=== PATIENT | male | born 1985 | race Hispanic/Latino ===

== ENCOUNTER 2019-07-05 05:12 | Emergency (ER) | payer OTHER, SELFPAY ==
--- NOTE | ~2019-07-05 | US_ITS ---
US right upper quadrant INDICATION: Right upper quadrant abdominal pain PROCEDURE: Realtime right upper abdominal ultrasound. COMPARISON: No prior studies for comparison. FINDINGS: The pancreas is normal without focal mass or pancreatic ductal dilation. Liver echotexture is increased, consistent with fatty infiltration. There is normal directional flow in the portal ve in. There are gallstones. No significant gallbladder wall thickening or pericholecystic fluid. Common bi le duct measures 5 mm. No sonographic Stewart's sign. IMPRESSION: 1: Cholelithiasis. 2: Hepatic steatosis. Reviewed, dictated and finalized at location A.
[2019-07-05 05:18] VITALS: BP 170/125; PULSE 71; RESP 16; TEMP 36.5; O2SAT 99
--- NOTE | 2019-07-05 05:41 | ED.ABDPAIN ---
HPI - Abdominal Pain General Chief Complaint: Abdominal Pain <Ada Taveras MD - Last Filed: 07/09/19 19:08> Stated Complaint: RUQ abd pain <Ada Taveras MD - Last Filed: 07/09/19 19:08> Time Seen by Provider: 07/05/19 05:35 <Ada Taveras MD - Last Filed: 07/09/19 19:08> Source: patient <Ada Taveras MD - Last Filed: 07/09/19 19:08> Mode of arrival: ambulatory <Ada Taveras MD - Last Filed: 07/09/19 19:08> Limitations: no limitations <Ada Taveras MD - Last Filed: 07/09/19 19:08> History of Present Illness HPI narrative: Patient is a 33-year-old male who presents to the emergency department with complaint of right upper quadrant pain. Patient states the pain woke him from sleep. Patient reports that pain has improved at this time. <Ada Taveras MD - Last Filed: 07/09/19 19:08> MD elicited complaint: abdominal pain <Ada Taveras MD - Last Filed: 07/09/19 19:08> Onset (ago): hour(s) <Ada Taveras MD - Last Filed: 07/09/19 19:08> Pain Consistency: constant and now resolved <Ada Taveras MD - Last Filed: 07/09/19 19:08> Location: RUQ <Ada Taveras MD - Last Filed: 07/09/19 19:08> Quality: dull <Ada Taveras MD - Last Filed: 07/09/19 19:08> Radiation: none <Ada Taveras MD - Last Filed: 07/09/19 19:08> Migration to: no migration <Ada Taveras MD - Last Filed: 07/09/19 19:08> Exacerbating factors: other (lying flat, palpation) <Ada Taveras MD - Last Filed: 07/09/19 19:08> Related Data Home Medications: Home Medications Medication Instructions Recorded Confirmed losartan 50 mg tablet 50 mg PO DAILY tablet 07/06/19 <Ada Taveras MD - Last Filed: 07/09/19 19:08> Allergies/Adverse Reactions: Allergies Allergy/AdvReac Type Severity Reaction Status Date / Time No Known Allergies Allergy Unknown Verified 07/07/19 09:26 <Ada Taveras MD - Last Filed: 07/09/19 19:08> Review of Systems Review of Systems: All systems reviewed & are unremarkable except as noted in HPI and below <Ada Taveras MD - Last Filed: 07/09/19 19:08> Constitutional: Constitutional: Denies fever(s) <Ada Taveras MD - Last Filed: 07/09/19 19:08> Respiratory: Respiratory: Reports cough <Ada Taveras MD - Last Filed: 07/09/19 19:08> Gastrointestinal: Gastrointestinal: Reports abdominal pain, Denies constipation, Denies diarrhea, Denies nausea and Denies vomiting <Ada Taveras MD - Last Filed: 07/09/19 19:08> Genitourinary: Genitourinary: Denies hematuria and Denies urinary frequency <Ada Tvaeras MD - Last Filed: 07/09/19 19:08> Musculoskeletal: Musculoskeletal: Denies back pain <Ada Taveras MD - Last Filed: 07/09/19 19:08> [facility], LAT[facility] Social History Social History: Social History Smoking status: Never smoker Second hand tobacco smoke exposure: No Alcohol intake: never Substance use: never <Ada Taveras MD - Last Filed: 07/09/19 19:08> Exam Const: General: cooperative, no acute distress and alert <Ada Taveras MD - Last Filed: 07/09/19 19:08> Nutritional Appearance: obese <Ada Taveras MD - Last Filed: 07/09/19 19:08> Orientation/consciousness: patient oriented x3 <Ada Taveras MD - Last Filed: 07/09/19 19:08> Limitations: no limitations <Ada Taveras MD - Last Filed: 07/09/19 19:08> HENMT: Mouth: Yes lip normal and Yes moist mucous membranes <Ada Taveras MD - Last Filed: 07/09/19 19:08> Resp: Effort & Inspection: normal respiratory effort <Ada Taveras MD - Last Filed: 07/09/19 19:08> Auscultation: clear to auscultation bilaterally <Ada Taveras MD - Last Filed: 07/09/19 19:08> Cardio: Rate: regular rate
[2019-07-05 05:49] LABS: Basophils Percent Auto 0.2 % (0.2-1.2); Eosinophils Absolute Auto 0.3 K/mm3 (0-0.3); Eosinophils Percent Auto 2.6 % (0-4.4); Hematocrit 48.6 % (42.0-52.0); Immature Granulocyte Absolute 0.05 K/mm3 (0.00-0.031); Immature Granulocyte Percent A 0.5 % (0-0.5); Lymphocytes Absolute Auto 3.55 K/mm3 (0.9-3.2); Lymphocytes Percent Auto 33.4 % (18.3-44.2); Mean Corpuscular Hemoglobin 29.2 pg (26-34); Mean Corpuscular Volume 83.5 fl (80-100); Mean Platelet Volume 9.8 fl (7.4-10.4); Monocytes Percent Auto 9.7 % (2.6-8.5); Neutrophils Absolute Auto 5.7 K/mm3 (1.3-6.7); Neutrophils Percent Auto 53.6 % (45.5-73.1); Platelet Count Result 256 k/mm3 (150-375); Red Blood Count 5.82 M/mm3 (4.6-6.20); White Blood Count 10.6 K/mm3 (4.5-10.0)
[2019-07-05 05:55] LABS: Add Urine Microscopic? NO; Appearance Urine Clear (Clear); Bilirubin Urine Negative (Negative); Blood Urine Negative (Negative); Color Urine Straw (Yellow); Glucose Urine UA Negative (Negative); Ketones Urine Negative (Negative); Leukocyte Esterase Ur Negative LEU/UL (Negative); Nitrate Urine Negative (Negative); Protein Urine Negative (Negative); Specific Grav Ur 1.015 (1.001-1.035); Urobilinogen Urine Negative mg/dL (<2.0); WBC Urine 0-3 /hpf
[2019-07-05 06:12] LABS: Alanine Aminotransferase 57 U/L (4-50); Albumin Level 4.6 g/dL (3.5-5.1); Alkaline Phosphatase 50 U/L (38-126); Aspartate Amino Transferase 54 U/L (17-59); Bilirubin,Total 0.7 mg/dL (0.2-1.3); Blood Urea Nitrogen 12 mg/dL (9-20); Calcium 9.3 mg/dL (8.4-10.2); Carbon Dioxide 25 mmol/L (22-30); Chloride 104 mmol/L (98-107); Estimated Glomerular Filt Rate > 60; Glucose 159 mg/dL (75-110); Lipase 142 U/L (23-300); Potassium 4.2 mmol/L (3.4-5.0); Sodium 137 mmol/L (137-145)
[2019-07-05 08:25] VITALS: BP 162/80; PULSE 76; RESP 16; O2SAT 99
== END 2019-07-05 08:26 | disposition home or self-care (01) ==
PROVIDERS: Emergency Medicine; Emergency Provider Emergency Medicine; PCP Internal Medicine
DX: K80.20 Calculus of gallbladder without cholecystitis without obstruction (principal); K76.0 Fatty (change of) liver, not elsewhere classified
CPT/HCPCS: 36415; 76705; 80053; 81003; 83690; 85025; 87804; 99284

== ENCOUNTER 2019-07-12 15:42 | Outpatient (CLI) | payer OTHER, SELFPAY ==
--- NOTE | ~2019-07-12 | XR_ITS ---
XR chest 2V DATE: 07/12/2019 16:00 INDICATION: Cough for 3 weeks TECHNIQUE: PA and lateral views COMPARISON: 06/03/2014 PA and lateral chest FINDINGS: Normal heart size. No hilar or mediastinal enlargement. No pulmonary infiltrate or consolid ation, pleural effusion or pulmonary vascular congestion or pneumothorax. Mild degenerative spurring of the thoracic spine. IMPRESSION: No active cardiopulmonary disease Reviewed, dictated and finalized at location A.
== END 2019-07-12 15:43 | disposition home or self-care (01) ==
LOC: ANHIMG 15:47
PROVIDERS: PCP Internal Medicine; Visit Provider Internal Medicine
DX: R05 Cough (principal)
CPT/HCPCS: 71046

== ENCOUNTER 2019-09-11 00:21 | Outpatient (CLI) | payer OTHER, SELFPAY | END 2019-09-11 00:22 | disposition home or self-care (01) | LOC: ANHCOVIDDT 00:21 | PROVIDERS: PCP Internal Medicine; Visit Provider Surgery | DX: Z01.812 Encounter for preprocedural laboratory examination (principal); K80.10 Calculus of gallbladder with chronic cholecystitis without obstruction; Z11.59 Encounter for screening for other viral diseases | CPT/HCPCS: 87635; C9803; U0003 ==

== ENCOUNTER 2019-09-11 07:35 | Outpatient (CLI) | payer OTHER, SELFPAY ==
--- NOTE | 2019-09-11 07:52 | ECG_ITS ---
Measurements Intervals Wiley Rate: 60 P: 28 AL: 157 QRS: 26 QRSD: 98 T: -8 QT: 397 QTc: 400 Interpretive Statements SINUS RHYTHM BORDERLINE T WAVE ABNORMALITY- INFERIOR LEADS BASELINE ARTIFACT- III, AVF BORDERLINE ECG Electronically Signed On 09-11-2019 9:08:53 CDT by Chuck Tan D.O.
[2019-09-11 08:20] LABS: Alanine Aminotransferase 139 U/L (4-50); Albumin Level 4.5 g/dL (3.5-5.1); Alkaline Phosphatase 42 U/L (38-126); Amylase 99 U/L (30-110); Aspartate Amino Transferase 85 U/L (17-59); Bilirubin,Total 0.9 mg/dL (0.2-1.3); Lipase 290 U/L (23-300)
== END 2019-09-11 07:36 | disposition home or self-care (01) ==
PROVIDERS: PCP Internal Medicine; Visit Provider Surgery
DX: K80.10 Calculus of gallbladder with chronic cholecystitis without obstruction (principal); I10 Essential (primary) hypertension
CPT/HCPCS: 36415; 80076; 82150; 83690; 93005

== ENCOUNTER 2019-09-14 00:54 | Day surgery (SDC) | payer OTHER, SELFPAY ==
[2019-09-10 08:20] VITALS: BMI 45.6
[2019-09-14] VITALS (10 sets, daily range): BP systolic 123–164; BP diastolic 54–93; PULSE 71–82; RESP 14–20; TEMP 36.2–36.5; O2SAT 93–98
--- NOTE | 2019-09-14 10:42 | WPDANESEPPF ---
Anes - Initial Pre Proc Eval Procedure: Operation Date: 09/14/19 12:00 Proposed Procedures p Laparoscopic Cholecystectomy Possible Intra Operative Cholangiogram Possible Open - Aiden Goel MD Date/Time: 09/14/19 10:42 Surgeon: Aiden Goel MD Pre Op Diagnosis: Chronic Cholecystitis with Cholelithiasis Patient Data Age: 34 Gender: M Height: 5 ft 11 in Weight: 145.3 kg Last Vital Signs Temp 36.2 C L 09/14/19 10:16 Pulse 78 09/14/19 10:16 Resp 20 09/14/19 10:16 BP 164/89 H 09/14/19 10:16 Pulse Ox 98 09/14/19 10:16 Allergies Allergy/AdvReac Type Severity Reaction Status Date / Time No Known Allergies Allergy Unknown Verified 09/14/19 10:42 Home Medications Medication Instructions Recorded Confirmed Type ondansetron 4 mg PO Q6H PRN #10 tablet 07/05/19 09/10/19 Rx citalopram 10 mg tablet 10 mg PO DAILY #90 tablet 07/07/19 09/10/19 Rx losartan 50 mg tablet 50 mg PO DAILY #90 tablet 09/06/19 09/10/19 Rx famotidine [Pepcid] 20 mg PO DAILY PRN 09/10/19 09/10/19 History multivitamin 1 tablet PO DAILY 09/10/19 09/10/19 History Patient hx anesthesia problems: none Family hx anesthesia problems: none PMFSH Past Medical History Medical History Hypertension Sleep apnea Surgical History Surgical History History of carpal tunnel surgery Bilateral History of repair of right rotator cuff Family History Family History Mother Patient's mother is in good health Cancer Father Patient's father is in good health Diabetes mellitus Social History Social History Smoking status: Never smoker Second hand tobacco smoke exposure: No Alcohol intake: never Substance use: never Gender identity (if verbalized by the patient): Male Anes - Eval Final PreProcedure Day of Procedure 09/14/19 10:42 Patient weight: morbidly obese Heart: regular rate and rhythm Lungs: clear to auscultation Airway: Mallampati scale class II Neurological: alert and oriented Last oral intake: >/= 8 hours ASA classification: III Emergent: no Anesthetic plan: proceed Anesthesia type and monitoring: general ETT and standard monitoring Informed Consent: The patient's anesthetic plan and its attendant risks and benefits were discussed with the patient/family/POA. Questions were solicited and answers provided to the satisfaction of the patient/family/POA.
[2019-09-14] MEDS: LACTATED RINGERS 1,000 ML 30 ML IV CONT ×2 (10:55→14:15)
--- NOTE | 2019-09-14 11:59 | WPDHPUPDATE1 ---
History and Physical Update Update Date/Time: 09/14/19 11:59 History and Physical has been reviewed, including an updated exam of the patient. There are NO changes in the patient's condition. Risks, benefits, and alternatives have been discussed and questions answered. Patient agrees to proceed with procedure.
[2019-09-14] MEDS: ceFAZolin 3 GM/D5W 100 ML 100 ML IVPB (12:18)
[2019-09-14] MEDS: BUPIVACAINE/EPINEPHRINE 0.5% 30 ML VIAL INFILTRATE (13:00)
--- NOTE | 2019-09-14 14:14 | PM.PROC ---
Procedure Note - Detailed Date of procedure: 09/14/19 Pre-op diagnosis: Chronic Cholecystitis with Cholelithiasis Post-op diagnosis: same Procedure performed: Laparoscopic cholecystectomy Description of procedure: Procedure Details: Patient was seen preoperatively in the holding area and risks, benefits and alternatives confirmed. Patient was taken to the operating room and general anesthesia was induced. A time out was then preformed with the surgery team confirming patient and site of surgery. The abdomen was prepped and draped in the usual sterile fashion. Incision was made just below the umbilicus. Two stay sutures of O- Vicryl were used to elevate the mid-line fascia beneath the umbilicus and a small incision was made under direct vision. The peritoneum was entered. The 12 mm Lynn cannula was introduced under direct vision. First under low flow and then under high flow the abdomen was insufflated with carbon dioxide never exceeding a pressure of 14. Three 5 mm trocars were then introduced under direct vision. The following trocars were introduced under direct vision: a 5 mm in the epigastrium and two 5 mm trocars along the right costal margin. There were few omental adhesions to the lower 2 cm of the gallbladder which also contained 2 large colalessed stones. These were dissected carefully with blunt sharp dissection to expose the cystic duct and cystic artery and hte window of safety. Once this was exposed well the gall bladder was grasped and the cystic duct and artery were dissected free and clipped with an 5 mm endo-clip electro mechanical solar technician. Two clips placed on the patient's side and 1 on the gallbladder side of each structure. The cystic duct was then transected. The cystic artery was also transected at this point. The gall bladder was removed using electrocautery and then removed using a large 10 mm grasper via the umbilical incision. Because of the large stones, we had to enlarge the fascial defect under the umbilicus and stretch it and also we opened the gallbladder once it became external to the umbilicus and reached inside it with a sponge stick order to crush 1 of the stones and pulling it up in out which then allowed the other larger stone to come up and out through the enlarged fascial defect. The trocars were removed visualizing hemostasis and the remaining gas evacuated. The large trocar site at the umbilicus was closed with an 0 vicryl figure of 8 suture. The 2 stay sutures mentioned above on either side of the fascia were also tied together to help approximate this midline fascia. Further local anesthetic was placed into each incision for postop pain control. The skin incisions were closed with a subcuticular of 4-0 Monocryl. Surgical glue then was applied to all the incisions. Patient tolerated the procedure well was taken to the recovery room in good condition. Anesthesia: CHITRA Surgeon: Aiden Goel MD Cafe Team Member: Yael ZUNIGA, Or secretary administrative assistant Estimated blood loss (mL): 20 Drains: No Packing: No Pathology: yes (The gallbladder) Complications: No immediate complications Condition: stable Disposition: PACU Findings: No significant inflammation of the gallbladder on inspection.
[2019-09-14] MEDS: ONDANSETRON INJ 4 MG/2 ML VIAL IV PUSH (15:30)
[2019-09-14] MEDS: SCOPOLAMINE 1.5 MG PATCH TRANSDERM (15:50)
[2019-09-14] MEDS: FAMOTIDINE 20 MG/2 ML VIAL IV PUSH (15:50)
== END 2019-09-14 16:40 | disposition home or self-care (01) ==
PROVIDERS: PCP Internal Medicine; Visit Provider Surgery
PROC: 0FT44ZZ Resection of Gallbladder, Percutaneous Endoscopic Approach (ICD-10-PCS; CPT 47562; principal; 2019-09-14 12:00)
DX: K80.10 Calculus of gallbladder with chronic cholecystitis without obstruction (principal); I10 Essential (primary) hypertension; G47.30 Sleep apnea, unspecified; E66.01 Morbid (severe) obesity due to excess calories; Z68.41 Body mass index [BMI] 40.0-44.9, adult
CPT/HCPCS: 47562; 88304; A9270; J0690; J2250; J2405; J3010; J7120

== ENCOUNTER 2021-04-02 08:21 | Outpatient (CLI) | payer OTHER, SELFPAY ==
--- NOTE | 2021-04-09 08:30 | WPDHOMESLEEP ---
Sleep Study - Home Unattended Date of Study: 04/02/21 Ordering Provider: Angel Douglass PA-C Interpreting Provider: Elsi Kearns MD Home Sleep Study Type: Apnea Link Air Height: 1.8 m Weight: 147.418 kg Body Mass Index: 45.3 Neck Circumference (inches): 21 [place]: 7 Reason for Sleep Study Waking at night unable to breathe, excessive daytime sleepiness; has used CPAP in the past * 06/06/2008; home sleep test, AHI 4 * 03/27/2016; split night study, AHI 11.9 with optimal pressure 12 cm * 05/23/2017; negative findings; AHI below 5, however patient continued to have nonrestorative sleep Sleep History Obie Guerrero is a 35 year old man with an episode of waking up one night unable to breathe. He tried to inhale, however he was not able to do so. He is excessively sleepy during the day. He rarely awakens from sleep feeling short of breath. He used CPAP years ago, then was told that he did not need to use it any longer. He rarely awakens from sleep feeling short of breath. He frequently awakens at night with heartburn, belching or coughing. He constantly snores loudly. He rarely has trouble sleeping with a cold. He rarely wakes up gasping for breath at night. He occasionally has breathing problems at night observed by others. He rarely sweats excessively at night. He does not notice his heart pounding or beating irregularly at night. He rarely falls asleep during the day. He does not fall asleep involuntarily or while driving. He does not have loss of muscle tone with strong emotion. He does not have daytime difficulties due to excessive sleepiness. He does not feel paralyzed on waking or falling asleep or have vivid dreamlike scenes upon awakening or falling asleep. He does not feel afraid to go to sleep. Except after a night when he could not catch his breath and inhale. He does not have nightmares. He rarely remembers his dreams. He does not have racing thoughts. He rarely feels sad or depressed. He occasionally has anxiety. He occasionally has muscular tension. He rarely notices parts of his body jerking. He does not kick at night. He rarely has crawling and aching feelings in his legs. He does not have any kind of leg pain at night. He does not have morning jaw pain. He denies grinding his teeth during sleep. He had is not bothered by pain during the day or awakened by pain at night. He occasionally wakes up feeling stiff in the morning, rarely wakes up with sore achy muscles. He occasionally wakes up with pain in the neck and spine. He has had several blood tests showing increased hematocrit and rbc mass consistent with polycythemia. Normal bedtime is 7:30 p.m. taking about an hour to fall asleep on nights that he works. He falls asleep much more quickly on the weekends. He typically wakes 1-3 times at night to urinate. He wakes the morning at 3:15 a.m.. On the weekends he stays awake until 11:00 p.m. or 12 midnight and wakes around 8:30 a.m.. He estimates getting 6-7 hours of sleep at night. He does not take naps. A short nap is not refreshing. He feels better in the morning compared to other times of day. He occasionally awakens feeling refreshed. Habits: Never smoked tobacco. Caffeine 1-2 sodas per day. No alcohol or recreational drugs. [facility] Past Medical History Medical History (Updated 04/09/21 @ 08:44 by Elsi Kearns MD) Acquired polycythemia Anxiety Hypertension Sleep apnea Surgical History Surgical History History of carpal tunnel surgery Bilateral History of repair of right rotator cuff Hx laparoscopic cholecystectomy Family History Family History Mother Patient's mother is in good health Cancer Father Patient's father is in good health Diabetes mellitus Social History Social History Smoking stat
[2021-04-09 09:34] VITALS: BMI 45.3
== END 2021-04-03 13:12 | disposition home or self-care (01) ==
LOC: ANHCSM 08:23
PROVIDERS: PCP Internal Medicine; Visit Provider Physician Assistant
DX: G47.33 Obstructive sleep apnea (adult) (pediatric) (principal); Z68.42 Body mass index [BMI] 45.0-49.9, adult
CPT/HCPCS: 95806

== ENCOUNTER 2023-11-06 13:26 | Outpatient (CLI) | payer BC, SELFPAY ==
--- NOTE | ~2023-11-06 | MR_ITS ---
EXAMINATION: MR lumbar spine wo con DATE: 11/06/2023 13:54 INDICATION: Low back pain, unspecified. TECHNIQUE: Magnetic resonance imaging (MRI) of the lumbar spine was performed without intravenous con trast. Sequences included sagittal T2-weighted FSE, sagittal T2-weighted FS FSE, sagittal T1-weighted FSE, and axial T2-weighted FSE. COMPARISON: None FINDINGS: There is 6 degrees levocurvature of lumbar spine. There is mild chronic anterior wedging of T11-L1 vertebral bodies. There is mildly decreased disc height at L1-L2 and L2-L3 and moderately dec reased disc height from L3-L4 through L5-S1. The distal spinal cord signal intensity is normal. The c onus medullaris is at L1. The following disc levels are specifically discussed: L1-L2: The disc is bulging with superimposed right central extrusion. There is moderate bilateral fac et joint osteoarthritis. There is mild right neural foraminal stenosis. There is mild central canal s tenosis. L2-L3: The disc is bulging and has an annular fissure. There is moderate bilateral facet joint osteoa rthritis. There is moderate right and mild left neural foraminal stenosis. There is mild central lang l stenosis. There is severe stenosis of right lateral recess. L3-L4: The disc is bulging and has an annular fissure. There is moderate right and severe left facet joint osteoarthritis. There is mild bilateral neural foraminal stenosis. There is mild central canal stenosis. L4-L5: The disc is bulging and has an annular fissure. There is severe bilateral facet joint osteoart hritis. There is mild bilateral neural foraminal stenosis. There is mild central canal stenosis. Ther e is moderate stenosis of the lateral recesses. L5-S1: There is a right subarticular zone extrusion with mass effect on the right S1 nerve root in ri ght lateral recess. There is severe bilateral facet joint osteoarthritis. There is mild bilateral lyndon ral foraminal stenosis. There is mild central canal stenosis. There is severe stenosis of right later al recess. IMPRESSION: 1. Severe lumbar spondylosis. Reviewed, dictated and finalized at location E.
== END 2023-11-06 13:27 ==
PROVIDERS: PCP Nurse Practitioner Family; Visit Provider Internal Medicine
DX: M47.896 Other spondylosis, lumbar region (principal)
CPT/HCPCS: 72148

== ENCOUNTER 2024-11-02 17:36 | Emergency (ER) | payer BC, SELFPAY ==
--- NOTE | ~2024-11-02 | XR_ITS ---
XR chest 2V Ordering provider: Tunde Felix MD History: 39 years Male with . dizzy . Comparison: July 12, 2019 FINDINGS: MEDIASTINUM: The cardiac silhouette is not enlarged. LUNGS: No infiltrates, effusions or pneumothorax. OTHER: No free air under the diaphragm. Degenerative changes of the spine. IMPRESSION: No acute cardiopulmonary pathology. Reviewed, dictated and finalized at location A.
--- OUTSIDE RECORDS SUMMARY | 2024-11-02 17:38 | XMS_ITS | Clinical Summary ---
Author Organization [facility] Address [address] [place] [address] Care Team Providers Care Proofer Black And White Name Role Phone Josiah Willard MD Primary Care Provider [phone] Minerva Lambert MD Unavailable Allergies No known active allergies Medications losartan (COZAAR) 50 mg tablet 12/25/2017 Active ibuprofen (ibuprofen) 200 mg tab/cap Take 4 tablet/capsu le (800 mg total) by mouth every 6 (six) hours as needed for pain Active HYDROcodone-raudel taminophen (NORCO) 5-325 mg per tabletIndicatio ns:Pain Take 1 tablet by mouth every 6 (six) hours as needed for pain 10 tablet 10/22/2021 Active gabapentin (NEURONTIN) 300 mg capsule Take 1 capsule (300 mg total) by mouth every 8 (eight) hours 90 capsule 04/27/2024 Active Active Problems Problem Noted Date Diagnosed Date Lumbar nerve root impingement 04/27/2024 Surgical History Surgery Date Site/Laterality Comments ROTATOR CUFF REPAIR CARPAL TUNNEL RELEASE Medical History Medical History Date Comments Hypertension Family History Medical History Relation Name Comments Alcohol abuse Brother Alcohol abuse Father Diabetes Father Hypertension Father Alcohol abuse Mother Arthritis Mother Relation Name Status Comments Brother Father Mother Social History Tobacco Use Types Packs/Day Years Used Date Smoking Tobacco: Never Smokeless Tobacco: Never Alcohol Use Standard Drinks/Week Comments No 0 (1 standard drink = 0.6 oz pur e alcohol) AUDIT-C Answer Date Recorded Q1: How often do you have a drink containing alcohol? Monthly or less 05/21/2024 Q2: How many drinks containi ng alcohol do you have on a typical day when you are drinking? Patient does not drink Q3: How often do you have si x or more drinks on one occasion? Never 05/21/2024 Sex and Gender Information Value Date Recorded Sex Assigned at Not on file Legal Sex Male 3:31 PM CDT Gender Identity Not on file Sexual Orientation Not on file Obstetrics History Last Filed Vital Signs Vital Sign Reading Time Taken Comments Blood Pressure 141/73 05/21/2024 12:12 PM CONSUMER SERVICES CONSULTANT Pulse 66 05/21/2024 12:12 PM CONSUMER SERVICES CONSULTANT Temperature 36.9 C (98.4 F) 05/21/2024 11:12 AM CONSUMER SERVICES CONSULTANT Respiratory Rate 20 05/21/2024 12:12 PM CONSUMER SERVICES CONSULTANT Oxygen Saturation 96% 05/21/2024 12:12 PM CONSUMER SERVICES CONSULTANT Inhaled Oxygen Concentration - - Weight 142.9 kg (315 lb) 05/28/2024 11:43 AM CONSUMER SERVICES CONSULTANT Height 180.3 cm (5' 11) 05/28/2024 11:43 AM CONSUMER SERVICES CONSULTANT Body Mass Index 43.93 05/28/2024 11:43 AM CONSUMER SERVICES CONSULTANT Plan of Treatment Health Maintenance Due Date Last Done Comments Depression Screening 1985 Hepatitis C Screening 1985 DTaP/Tdap/Td Vaccine (1 - Tdap) 09/02/1994 Varicella Vaccines (1 of 2 - 13+ 2-dose series) 09/02/1996 Hepatitis B Screening 09/02/2001 Regular Well Visit/Exam 18-64 09/02/2001 Influenza Vaccine (Season Ended) 2024 03/05/20 16 HPV Vaccines Aged Out No longer eligi ble based on patient's age to complete this topic Pneumococcal vaccine <65 Aged Out No longer eligible based on patient's age to complete this topic Insurance [facility] ACCESS CHOICE ANTHEM ACCESS CHOICE WORKERS COMPENSATION GENERIC Care Teams Proofer Black And White Relationship Specialty Start Date End Date Josiah Willard MD [address] [facility] [address] [place] [address] PCP - General Internal Medicine 03/10/18 Minerva Lambert MD [address] [facility], [address] [address] Consulting Physician Pain Management 04/27/24
--- OUTSIDE RECORDS SUMMARY | 2024-11-02 17:38 | XMS_ITS | Clinical Summary ---
Author Organization [facility] [employer] Address [address] [place] [address] Care Team Providers Care Transformer Repairer Name Role Phone Unavailable Primary Care Provider Unavailabl e Source Comments [facility] [employer],non-owned Affiliates and Associated Physician Practices is amultiple site organization consisting of ambulatory clinics and hospital sitesin [place], [place], [place] and [place]. This disclosure is being madepursuant to the Care Everywhere program and may not contain all information available regarding this patient. Last updated 18.[facility] [employer] Allergies No known active allergies Medications * Be aware that medications may not be up to date on this document. Alwaysverify current medications with the patient. LISINOPRIL-HYDROCH LOROTHIAZIDE PO Acti ve LOSARTAN POTASSIUM PO Active Family History Relation Name Status Comments Father Alive Mother Alive Social History Tobacco Use Types Packs/Day Years Used Date Smoking Tobacco: Never Smokeless Tobacco: Never Sex and Gender Information Value Date Recorded Sex Assigned at Not on file Legal Sex Male 9:26 AM COMMERCIAL [employer] Gender Identity Not on file Sexual Orientation Not on file Last Filed Vital Signs Vital Sign Reading Time Taken Comments Blood Pressure 132/86 04/22/2017 5:17 PM COMMERCIAL REAL ESTATE PARALEGAL Pulse 89 04/22/2017 5:17 PM COMMERCIAL REAL ESTATE PARALEGAL Temperature 37.2 C (98.9 F) 04/22/2017 5:17 PM COMMERCIAL REAL ESTATE PARALEGAL Respiratory Rate 16 04/22/2017 5:17 PM COMMERCIAL REAL ESTATE PARALEGAL Oxygen Saturation 97% 04/22/2017 5:17 PM COMMERCIAL REAL ESTATE PARALEGAL Inhaled Oxygen Concentration - - Weight 142.9 kg (315 lb) 04/22/2017 5:17 PM COMMERCIAL REAL ESTATE PARALEGAL Height 180.3 cm (5' 11) 04/22/2017 5:17 PM COMMERCIAL REAL ESTATE PARALEGAL Body Mass Index 43.93 04/22/2017 5:17 PM COMMERCIAL REAL ESTATE PARALEGAL Plan of Treatment Health Maintenance Due Date Last Done Comments LIPID TESTING 1985 HIV SCREENING 09/02/1998 HEPATITIS C SCREENING 08/29/2001 DTAP/TDAP/TD VACCINES (1 - Tdap) 09/02/2002 HEPATITIS B VACCINE (1 of 3 - 19+ 3-dose series) 09/02/2002 COVID-19 VACCINE ( - 2023-2 5 season) 2023 DEPRESSION SCREENING 04/28/2024 INFLUENZA VACCINE (Season Ended) 2024 ZOSTER VACCINE (1 of 2) 09/02/2033 HIB VACCINE Aged Out No longer eligi ble based on patient's age to complete this topic HPV VACCINE Aged Out No longer eligi ble based on patient's age to complete this topic MENINGOCOCCAL (Group B) VACC INE SHARED DECISION-MAKING Aged Out No longer eligibl e based on patient's age to complete this topic MENINGOCOCCAL GROUPS A/C/Y/W VACCINE Aged Out No longer eligible b ased on patient's age to complete this topic PNEUMOCOCCAL VACCINE Aged Out No long er eligible based on patient's age to complete this topic Insurance [employer]
--- OUTSIDE RECORDS SUMMARY | 2024-11-02 17:38 | XMS_ITS | Referral Summary ---
Author Organization [facility] Address [address] [place] [address] Care Team Providers Care Medicare Coordinator Name Role Phone Josiah Willard MD Primary Care Provider +1- [phone] Minerva Lambert MD Unavailable Allergies No known [...] Diagnosed Date Lumbar nerve root impingement 04/27/2024 Social History Tobacco Use Types Packs/Day Years [...] Comments Blood Pressure 141/73 05/21/2024 12:12 PM GEAR STRAIGHTENER Pulse 66 05/21/2024 12:12 PM GEAR STRAIGHTENER Temperature 36.9 C (98.4 F) 05/21/2024 11:12 AM GEAR STRAIGHTENER Respiratory Rate 20 05/21/2024 12:12 PM GEAR STRAIGHTENER Oxygen Saturation 96% 05/21/2024 12:12 PM GEAR STRAIGHTENER Inhaled Oxygen Concentration - - Weight 142.9 kg (315 lb) 05/28/2024 11:43 AM GEAR STRAIGHTENER Height 180.3 cm (5' 11) 05/28/2024 11:43 AM GEAR STRAIGHTENER Body Mass Index 43.93 05/28/2024 11:43 AM GEAR STRAIGHTENER Plan of Treatment Not on file Insurance [facility] Address: [place] [address] [employer] ACCESS ANTHEM ACCESS CHOICE WORKERS COMPENSATION GENERIC Care Teams Medicare Coordinator Relationship Specialty Start Date End Date Josiah Willard MD [address] [facility] [address] [place] [address] PCP - General Internal Medicine 03/10/18 Minerva Lambert MD [address] [facility], [address] [address] Consulting Physician Pain Management 04/27/24
[2024-11-02 18:19] VITALS: BP 181/109; PULSE 78; RESP 18; TEMP 36.4; O2SAT 99
--- NOTE | 2024-11-02 19:27 | ECG_ITS ---
Test Date: 2024-11-02 20:35:52 Measurements Intervals [place] Rate: 69 P: 60 OK: 156 QRS: 24 QRSD: 100 T: 22 QT: 375 QTc: 404 Interpretive Statements SINUS RHYTHM NORMAL ELECTROCARDIOGRAM No previous ECG available for comparison Electronically Signed On 11-03-2024 07:47:31 CDT by Peter Walton M.D.
[2024-11-02 20:26] LABS: Hematocrit 56.5 % (42.0-52.0); Hemoglobin 18.1 g/dL (14.0-18.0); Immature Granulocyte Percent A 0.2 % (0-0.5); Lymphocytes Absolute Auto 2.79 K/mm3 (0.9-3.2); Mean Corpuscular HGB Conc 32.0 g/dl (32-36); Mean Corpuscular Hemoglobin 24.8 pg (26-34); Mean Corpuscular Volume 77.5 fl (80-100); Nucleated Red Blood Cells Absolute Auto 0.000 K/mm3 (0.0-0.012); Nucleated Red Blood Cells Perc 0.0 % (0.0-0.2); Platelet Count Result 262 k/mm3 (150-375); Red Blood Count 7.29 M/mm3 (4.6-6.20); White Blood Count 11.0 K/mm3 (4.5-10.0)
[2024-11-02 20:35] LABS: Alanine Aminotransferase 31 U/L (6-50); Albumin Level 4.6 g/dL (3.5-5.1); Alkaline Phosphatase 43 U/L (38-126); Anion Gap 12 mmol/L (4-12); Aspartate Amino Transferase 48 U/L (17-59); Bilirubin,Total 1.0 mg/dL (0.2-1.3); Blood Urea Nitrogen 16 mg/dL (9-20); Calcium 9.6 mg/dL (8.4-10.2); Carbon Dioxide 27 mmol/L (22-30); Chloride 99 mmol/L (98-107); Estimated CRCL calculation 86 ml/min; Estimated Glomerular Filt Rate 58; Glucose 82 mg/dL (65-110); Magnesium 1.8 mg/dL (1.6-2.3); Potassium 3.7 mmol/L (3.4-5.0); Sodium 138 mmol/L (137-145); Total Protein 8.7 g/dL (6.3-8.2)
[2024-11-02 20:39] VITALS: BP 161/108; PULSE 81; RESP 15; O2SAT 100
[2024-11-02 20:40] VITALS: PULSE 84; RESP 16; O2SAT 98
[2024-11-02 20:46] VITALS: BP 158/96; PULSE 72; RESP 15; TEMP 36.7; O2SAT 97
--- NOTE | 2024-11-02 20:48 | ED_ITS ---
HPI - Dizziness General Chief Complaint: Syncope Stated Complaint: near syncope at the gym Time Seen by Provider: 11/02/24 20:41 History of Present Illness HPI Narrative: Patient is a 39-year-old male who presents to the emergency department this evening status post a near syncopal episode. Patient states that last week on Friday he was at the gym exercising when he had a syncopal episode causing him to fall. Patient believes that he did hit his head. He has been doing fine since then and has been going to the gym. Today he was at the gym again exercising and he felt lightheaded as if he was going to pass out. Patient did not pass out today. Admits to past medical history of hypertension states that he is compliant with his medications. At this time, he is resting comfortably and denies any lightheadedness, dizziness or near syncopal episodes. Patient states that he is scheduled for an echo and Holter monitor. No additional symptoms or concerns at this time. Related Data Allergies Allergy/AdvReac Type Severity Reaction Status Date / Time No Known Allergies Allergy Unknown Verified 11/02/24 18:25 Review of Systems 2 Review of Systems: All systems are reviewed and are negative unless stated otherwise in the HPI. [facility] Past Medical History Medical History Other fatigue Morbid obesity with BMI of 40.0-44.9, adult Essential (primary) hypertension URI, acute Ringworm Right sided sciatica Rash DANNI (obstructive sleep apnea) Left foot pain Encounter for vasectomy counseling Dietary counseling and surveillance (10/10/15) Cough Cervicalgia Allergic rhinitis, unspecified Acute pain of right shoulder Acute pain of left wrist Acute pain of left knee Acquired polycythemia Anxiety Sleep apnea Hypertension Surgical History Surgical History Hx laparoscopic cholecystectomy 2019 History of repair of right rotator cuff 2016 History of carpal tunnel surgery Bilateral- 2009 Family History Family History Mother Patient's mother is in good health Cancer COPD (chronic obstructive pulmonary disease) Anal cancer Father Patient's father is in good health Diabetes mellitus Hypertension Sibling Hypertension Social History Social History Smoking status: Never smoker Second hand tobacco smoke exposure: Yes Alcohol intake: current Substance use: never Substance use type: does not use Do You Feel Safe in your Home?: Yes Lack of Transportation: No Lack of Food: Never True Current Housing: I Have Housing Concerned About Future Housing: No Difficulty Paying Gas/Electric Bills: No Difficulty Paying for Meds: No Currently Unemployed: No Education: Associate Degree Difficulty w/ Childcare or Family Care: No Living arrangements: with family Occupation/Education: occupation 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 Gender identity (if verbalized by the patient): Male Exam 2 Narrative: General: Alert, awake, afebrile, in no acute distress. HEENT: PERRL, no rhinorrhea, no post nasal drip, oropharynx clear. Neck: Trachea midline, no JVD, no lymphadenopathy. Cardiovascular: Regular rate and rhythm, no murmurs, rubs or gallops, no peripheral edema. Respiratory: Clear to auscultation bilaterally, no tachypnea, no wheezing, no rhonchi, no rubs, no respiratory distress. Abdomen: Soft, nontender, nondistended, no rebound, no guarding, no peritoneal signs. Musculoskeletal: No joint swelling or deformity, normal muscle tone. Skin: No rashes or petechia, no signs of infection. Psychiatric: Alert and oriented, normal behavior and judgment for situation. Neurological: Alert and oriented to person, place, and time. Follows all commands. No focal deficits, speech is clear and fluent. Course Vital Signs Vital signs: Vital Signs Temperature 97.6 F 11/02/24 18:19 Pulse Rate 78 11/02/24 18:19 Respiratory Rate 18 11/02/24 18:19 Blood Pressure 181/109 H 11/02/24 18:19 Pulse Oximetry 99 11/02/24 18:19 Oxygen Delivery Room Air 11/02/24 18:19 Temperature 97.6 F 11/02/24 18:19 Pulse Rate 78 11/02/24 18:19 Respiratory Rate 18 11/02/24 18:19 Blood Pressure 181/109 H 11/02/24 18:19 Pulse Oximetry 99 11/02/24 18:19 Oxygen Delivery Room Air 11/02/24 18:19 MDM - Dizziness MDM Narrative Medical decision making narrative: The patient was evaluated by myself in the emergency department. History is obtained from patient who is an independent historian and physical exam was performed. External medical records were reviewed at this time. IV was established and pertinent tests were ordered. EKG was obtained which revealed sinus rhythm rate of 69 beats per minute, no evidence of arrhythmia or acute ischemia. EKG was independently interpreted by me and is currently pending official cardiology read. Laboratory results obtained revealing no acute process. Imaging studies obtained included CXR which was independently interpreted by me revealing no acute process, which is pending final radiology interpretation. Differential diagnosis considerations include dehydration, electrolyte derangements, vasovagal episode, Comorbidities impacting this visit include history of hypertension. I have evaluated and discussed social determinants of health with the patient that could potentially impact subsequent diagnosis and treatment plans. On repeat assessment of the patient, reevaluation revealed that the patient is doing well and is in no acute distress. Patient symptoms have improved since he arrived to our emergency department. Repeat vital signs were all reviewed and noted to be stable. Differential diagnosis and treatment plan were discussed with the patient at bedside. Patient agrees with discussion and after shared medical decision making agrees with discharge. All questions were answered to the patient's satisfaction. Patient will follow up with his PCP in 3-5 days. He was also provided with a Cardiology referral instructed to call to set up a follow-up appointment. Instructed to limit his exercise as this has worked inducing his near syncopal/syncopal episodes. Patient was provided with strict return precautions and instructed to return to the emergency department if any new or worsening symptoms develop. The patient was discharged in stable condition. Lab Data 11/02/24 20:13 11/02/24 20:13 Labs: Lab Results 11/02/24 Range/Units 20:13 WBC 11.0 H (4.5-10.0) K/mm3 RBC 7.29 H (4.6-6.20) M/mm3 Hgb 18.1 H (14.0-18.0) g/dL Hct 56.5 H (42.0-52.0) % MCV 77.5 L (80-100) fl MCH 24.8 L (26-34) pg MCHC 32.0 (32-36) g/dl RDW 18.6 H (11.5-14.5) % Plt Count 262 (150-375) k/mm3 MPV 9.3 (7.4-10.4) fl Immature Gran % (Auto) 0.2 (0-0.5) % Neut % (Auto) 62.9 (45.5-73.1) % Lymph % (Auto) 25.4 (18.3-44.2) % Charles % (Auto) 9.6 H (2.6-8.5) % Eos % (Auto) 1.6 (0-4.4) % Baso % (Auto) 0.3 (0.2-1.2) % Lymph # (Auto) 2.79 (0.9-3.2) K/mm3 Charles # (Auto) 1.1 H (0.1-0.6) K/mm3 Eos # (Auto) 0.2 (0-0.3) K/mm3 Baso # (Auto) 0.0 (0.0-0.1) K/mm3 Abs Immat Gran (auto) 0.02 (0.00-0.031) K/mm3 Absolute Neuts (auto) 6.9 H (1.3-6.7) K/mm3 Absolute Nucleated RBC 0.000 (0.0-0.012) K/mm3 Nucleated RBC % 0.0 (0.0-0.2) % Sodium 138 (137-145) mmol/L Potassium 3.7 (3.4-5.0) mmol/L Chloride 99 (98-107) mmol/L Carbon Dioxide 27 (22-30) mmol/L Anion Gap 12 (4-12) mmol/L BUN 16 (9-20) mg/dL Creatinine 1.35 H (0.7-1.3) mg/dL Estim Creat Clear Calc 86 ml/min Estimated GFR 58 L (59 - ) Glucose 82 (65-110) mg/dL Calcium 9.6 (8.4-10.2) mg/dL Magnesium 1.8 (1.6-2.3) mg/dL Total Bilirubin 1.0 (0.2-1.3) mg/dL AST 48 (17-59) U/L ALT 31 (6-50) U/L Alkaline Phosphatase 43 (38-126) U/L Total Protein 8.7 H (6.3-8.2) g/dL Albumin 4.6 (3.5-5.1) g/dL Discharge Plan Discharge Clinical Impression: Near syncope Patient Disposition: Home Condition: Improved Instructions: Antibiotic Form, Near Syncope (ED) Additional Instructions: Please follow-up with your family doctor within the next 3-5 days. You also provided with a Cardiology referral and instructed to call to set up a follow-up appointment. Since your episodes are precipitated by exercise, I do recommend that you limit your exercise until your echo and Holter monitor evaluation is complete return to the ED if any new or worsening symptoms develop. Patient Language: Greek Prescriptions: No Action cholecalciferol (vitamin D3) 1,250 mcg (50,000 unit) capsule 1,250 mcg PO .COMPLEX Qty: 14 1RF Rx Instructions: 1,250 mcg orally; Take once weekly for 4 weeks, then once monthly thereafter. cyclobenzaprine 10 mg tablet 10 mg PO QHS PRN (Reason: muscle spasm) Qty: 30 0RF cholestyramine (with sugar) 4 gram powder in packet 4 g PO BID Qty: 60 3RF Rx Instructions: administer w/meal; avoid other meds within 1hr before or 4-6hr after dose losartan 50 mg tablet 50 mg PO DAILY Qty: 90 3RF citalopram [Celexa] 10 mg tablet 10 mg PO DAILY Qty: 90 3RF Zepbound 12.5 mg/0.5 mL pen injector 12.5 mg subcut WEEKLY Qty: 2 0RF Follow-up/Referrals: Dev Jaramillo MD [Physician] - 3 Days Bernard Goel APRN [Primary Care Provider] - Time of Disposition: 20:51
--- OUTSIDE RECORDS SUMMARY | 2024-11-02 20:53 | XMS_ITS | Referral Summary ---
Author Organization [facility] Address [address] [place] [address] Care Team Providers Care Sales Person Name Role Phone Josiah Willard MD Primary Care Provider +1- [phone] Minerva Lambert MD Unavailable Allergies No known [...] Comments Blood Pressure 141/73 05/21/2024 12:12 PM ELEVATOR TENDER Pulse 66 05/21/2024 12:12 PM ELEVATOR TENDER Temperature 36.9 C (98.4 F) 05/21/2024 11:12 AM ELEVATOR TENDER Respiratory Rate 20 05/21/2024 12:12 PM ELEVATOR TENDER Oxygen Saturation 96% 05/21/2024 12:12 PM ELEVATOR TENDER Inhaled Oxygen Concentration - - Weight 142.9 kg (315 lb) 05/28/2024 11:43 AM ELEVATOR TENDER Height 180.3 cm (5' 11) 05/28/2024 11:43 AM ELEVATOR TENDER Body Mass Index 43.93 05/28/2024 11:43 AM ELEVATOR TENDER Plan of Treatment Not on file Insurance [employer] ACCESS ANTHEM ACCESS CHOICE WORKERS COMPENSATION GENERIC Care Teams Sales Person Relationship Specialty Start Date End Date Josiah Willard MD [address] [facility] [address] [place] [address] PCP - General Internal Medicine 03/10/18 Minerva Lambert MD [address] [facility], [address] [address] Consulting Physician Pain Management 04/27/24
--- OUTSIDE RECORDS SUMMARY | 2024-11-02 20:53 | XMS_ITS | Clinical Summary ---
Author Organization [facility] Address [address] [place] [address] Care Team Providers Care Political Director Name Role Phone Josiah Willard MD Primary Care Provider +1- [phone] Minerva Lambert MD Unavailable Allergies No known [...] Comments Blood Pressure 141/73 05/21/2024 12:12 PM MACHINE HOOP MAKER Pulse 66 05/21/2024 12:12 PM MACHINE HOOP MAKER Temperature 36.9 C (98.4 F) 05/21/2024 11:12 AM MACHINE HOOP MAKER Respiratory Rate 20 05/21/2024 12:12 PM MACHINE HOOP MAKER Oxygen Saturation 96% 05/21/2024 12:12 PM MACHINE HOOP MAKER Inhaled Oxygen Concentration - - Weight 142.9 kg (315 lb) 05/28/2024 11:43 AM MACHINE HOOP MAKER Height 180.3 cm (5' 11) 05/28/2024 11:43 AM MACHINE HOOP MAKER Body Mass Index 43.93 05/28/2024 11:43 AM MACHINE HOOP MAKER Plan of Treatment Health Maintenance Due Date [...] patient's age to complete this topic Insurance [facility] ACCESS CHOICE ANTHEM ACCESS CHOICE WORKERS COMPENSATION GENERIC Care Teams Political Director Relationship Specialty Start Date End Date Josiah Willard MD [address] [facility] [address] [place] [address] PCP - General Internal Medicine 03/10/18 Minerva Lambert MD [address] [facility], [address] [address] Consulting Physician Pain Management 04/27/24
--- OUTSIDE RECORDS SUMMARY | 2024-11-02 20:53 | XMS_ITS | Clinical Summary ---
Author Organization [facility] [employer] Address [address] [place] [address] Care Team Providers Care Station Operator Name Role Phone Unavailable Primary Care Provider Unavailabl e Source Comments [facility],non-owned Affiliates and Associated Physician Practices is amultiple site organization consisting of ambulatory clinics and hospital sitesin [place], [place], [place] and [place]. This disclosure is being madepursuant to the Care Everywhere program and may not contain all information available regarding this patient. Last updated 18.[facility] Allergies No known active allergies Medications * [...] on file Legal Sex Male 9:[address] Gender Identity Not on file Sexual Orientation Not on file Last Filed Vital Signs Vital Sign Reading Time Taken Comments Blood Pressure 132/86 04/22/2017 5:[address] Pulse 89 04/22/2017 5:[address] Temperature 37.2 C (98.9 F) 04/22/2017 5:[address] Respiratory Rate 16 04/22/2017 5:[address] Oxygen Saturation 97% 04/22/2017 5:[address] Inhaled Oxygen Concentration - - Weight 142.9 kg (315 lb) 04/22/2017 5:[address] Height 180.3 cm (5' 11) 04/22/2017 5:[address] Body Mass Index 43.93 04/22/2017 5:[address] Plan of Treatment Health Maintenance Due Date [...] patient's age to complete this topic [place] [address] [facility] Address: [address] [place] [address]
== END 2024-11-02 21:01 | disposition home or self-care (01) ==
LOC: ANHED 20:51
PROVIDERS: Emergency Provider Emergency Medicine; PCP Nurse Practitioner
DX: R55 Syncope and collapse (principal); I10 Essential (primary) hypertension; G47.30 Sleep apnea, unspecified
CPT/HCPCS: 36415; 71046; 80053; 83735; 85025; 93005; 99284

== ENCOUNTER 2024-11-05 09:20 | Outpatient (CLI) | payer BC, SELFPAY ==
--- OUTSIDE RECORDS SUMMARY | 2024-11-05 09:27 | XMS_ITS | Clinical Summary ---
Author Organization [facility] [employer] Address [address] [place] [address] Care Team Providers Care Die Sizer Name Role Phone Unavailable Primary Care Provider Unavailabl e Source Comments [facility],non-owned Affiliates and Associated Physician Practices is amultiple site organization consisting of ambulatory clinics and hospital sitesin [place], [place], [place] and [place]. This disclosure is being madepursuant to the Care Everywhere program and may not contain all information available regarding this patient. Last updated 18.[facility] Allergies No known active allergies Medications * [...] on file Legal Sex Male 9:26 AM CREDIT ADVISOR Gender Identity Not on file Sexual Orientation Not on file Last Filed Vital Signs Vital Sign Reading Time Taken Comments Blood Pressure 132/86 04/22/2017 5:17 PM CREDIT ADVISOR Pulse 89 04/22/2017 5:17 PM CREDIT ADVISOR Temperature 37.2 C (98.9 F) 04/22/2017 5:17 PM CREDIT ADVISOR Respiratory Rate 16 04/22/2017 5:17 PM CREDIT ADVISOR Oxygen Saturation 97% 04/22/2017 5:17 PM CREDIT ADVISOR Inhaled Oxygen Concentration - - Weight 142.9 kg (315 lb) 04/22/2017 5:17 PM CREDIT ADVISOR Height 180.3 cm (5' 11) 04/22/2017 5:17 PM CREDIT ADVISOR Body Mass Index 43.93 04/22/2017 5:17 PM CREDIT ADVISOR Plan of Treatment Health Maintenance Due Date [...] patient's age to complete this topic [facility]
--- OUTSIDE RECORDS SUMMARY | 2024-11-05 09:27 | XMS_ITS | Clinical Summary ---
Author Organization [facility] Address [address] [place] [address] Care Team Providers Care Physiological Chemist Name Role Phone Josiah Willard MD Primary Care Provider +1- [phone] Minerva Lambert MD Unavailable Allergies No known [...] Comments Blood Pressure 141/73 05/21/2024 12:12 PM PRODUCT DEVELOPER Pulse 66 05/21/2024 12:12 PM PRODUCT DEVELOPER Temperature 36.9 C (98.4 F) 05/21/2024 11:12 AM PRODUCT DEVELOPER Respiratory Rate 20 05/21/2024 12:12 PM PRODUCT DEVELOPER Oxygen Saturation 96% 05/21/2024 12:12 PM PRODUCT DEVELOPER Inhaled Oxygen Concentration - - Weight 142.9 kg (315 lb) 05/28/2024 11:43 AM PRODUCT DEVELOPER Height 180.3 cm (5' 11) 05/28/2024 11:43 AM PRODUCT DEVELOPER Body Mass Index 43.93 05/28/2024 11:43 AM PRODUCT DEVELOPER Plan of Treatment Health Maintenance Due Date Last Done Comments Depression Screening 1985 Hepatitis C Screening 1985 DTaP/Tdap/Td Vaccine (1 - Tdap) 09/02/1994 Varicella Vaccines (1 of 2 - 13+ 2-dose series) 09/02/1996 Hepatitis B Screening 09/02/2001 Regular Well Visit/Exam 18-64 09/02/2001 Influenza Vaccine (#1) 2024 03/05/2016 HPV Vaccines Aged Out No longer eligi ble based on patient's age to complete this topic Pneumococcal vaccine <65 Aged Out No longer eligible based on patient's age to complete this topic Insurance COUNT INCLUDES THE [facility] ACCESS CHOICE ANTHEM ACCESS CHOICE WORKERS COMPENSATION GENERIC Care Teams Physiological Chemist Relationship Specialty Start Date End Date Josiah Willard MD [address] [email or web address] [address] [place] [address] PCP - General Internal Medicine 03/10/18 Minerva Lambert MD [address] [facility], [address] [address] Consulting Physician Pain Management 04/27/24
--- OUTSIDE RECORDS SUMMARY | 2024-11-05 09:27 | XMS_ITS | Referral Summary ---
Author Organization [facility] Address [address] [place] [address] Care Team Providers Care Knot Borer Name Role Phone Josiah Willard MD Primary Care Provider +1- [phone] Minerva Lambert MD Unavailable Allergies No known [...] Comments Blood Pressure 141/73 05/21/2024 12:12 PM CONVEYOR SYSTEM DISPATCHER Pulse 66 05/21/2024 12:12 PM CONVEYOR SYSTEM DISPATCHER Temperature 36.9 C (98.4 F) 05/21/2024 11:12 AM CONVEYOR SYSTEM DISPATCHER Respiratory Rate 20 05/21/2024 12:12 PM CONVEYOR SYSTEM DISPATCHER Oxygen Saturation 96% 05/21/2024 12:12 PM CONVEYOR SYSTEM DISPATCHER Inhaled Oxygen Concentration - - Weight 142.9 kg (315 lb) 05/28/2024 11:43 AM CONVEYOR SYSTEM DISPATCHER Height 180.3 cm (5' 11) 05/28/2024 11:43 AM CONVEYOR SYSTEM DISPATCHER Body Mass Index 43.93 05/28/2024 11:43 AM CONVEYOR SYSTEM DISPATCHER Plan of Treatment Not on file Insurance [employer] ACCESS ANTHEM ACCESS CHOICE WORKERS COMPENSATION GENERIC Care Teams Knot Borer Relationship Specialty Start Date End Date Josiah Willard MD [address] [facility] [address] [place] [address] PCP - General Internal Medicine 03/10/18 Minerva Lambert MD [address] [facility], [address] [address] Consulting Physician Pain Management 04/27/24
--- NOTE | 2024-11-19 10:49 | WPDHOLTEREM ---
Holter/Event Monitor Holter/Event Monitor Date of procedure: 11/05/24 Holter/Event Procedure: 3-7 Day Holter Monitor Indications: Syncope Conclusion: 1. 3 days and 11 hours holter monitor on 11/05/24. 2. Underlying rhythm is sinus rhythm. HR range 48-167 bpm; average HR 76 bpm. HR at 48 bpm was on 11/06/24 at 4:57 am. HR at 167 bpm was on 11/08/24 at 5:44 pm. 3. There are rare premature supraventricular complexes and rare supraventricular triplets. No supraventricular tachycardia. 4. There are rare premature ventricular complexes, rare ventricular couplets, longest ventricular bigeminy is 5.3 seconds and longest ventricular trigeminy is 11.7 seconds. No ventricular tachycardia. 5. No significant pauses greater than 3 seconds. 6. Patient reports 1 episode of symptom of lightheadedness which demonstrates sinus tachycardia at 110 bpm with PVC.
--- NOTE | 2024-11-30 14:48 | PCCARD ---
11-30-24--SPOKE WITH THE PATIENT, HE STATED THAT HE DID NOT REC'V THE 2ND MONITOR FROM [employer] IN THE MAIL. HE ONLY WORE THE FIRST MONITOR FOR 3 DAYS AND HAD TO TAKE IT OFF DUE TO EXCESSIVE SWEATING. SPOKE WITH LUBNA AT THE [employer], HE SHOWS THAT THE [employer] DELIVERED IT ON 11-12-24. I CALLED JAMES THIBODEAUX NP'S OFFICE TO LET THEM KNOW THAT THE PATIENT HAS WORN IT FOR 3 DAYS AND DO THEY WANT HIM TO WEAR THE MONITOR FOR ANY LONGER? THEY ARE GOING TO CHECK WITH JAMES THIBODEAUX NP ON 12-01-24.//MM
--- NOTE | 2024-12-08 14:53 | PCCARD ---
12-08-24, SPOKE WITH THE OFFICE. THEY ARE GOING TO SPEAK WITH Sharif THIBODEAUX NP TO SEE IF HE IS WANTING TO CONTINUE AND WANTS THE PATIENT TO WEAR A 2ND MONITOR AGAIN? OR IF WE CAN CONTACT [employer] AND HAVE THE 2ND MONIOTOR MARKED LOST AT NO CHARGE.//MM
--- NOTE | 2024-12-09 09:46 | PCCARD ---
12-09-24, A MESSAGE WAS LEFT FROM VENANCIO AT DR JAMES THIBODEAUX'S OFFICE THAT THEY ARE NOT GOING TO ORDER ANOTHER MONITOR FOR THIS PATIENT. THEY ARE GOING TO REFER THIS PATIENT TO A ABRASIVE GRINDER. ALSO, I CALLED THE A.P [employer] TO LET THEM KNOW TO EDNA IT A LOST MONITOR WHAT THEY HAD MENTIONED BEFORE. I SPOKE WITH KAMALA AT 09:42AM, AND I ALSO CALLED THE PATIENT AND CALLED LVM FOR HIM //MM
== END 2024-11-05 09:21 | disposition home or self-care (01) ==
PROVIDERS: PCP Nurse Practitioner; Visit Provider Nurse Practitioner
DX: R55 Syncope and collapse (principal)
CPT/HCPCS: 93242

== ENCOUNTER 2025-01-18 10:43 | Outpatient (CLI) | payer BC, SELFPAY ==
--- NOTE | 2025-01-18 10:45 | EST_ITS ---
Patient Info Name: Obie Guerrero Age: 39 years : 1985 Gender: Male Ht: 71 in Wt: 28 lbs BSA: 0.75 m2 HR: 67 bpm BP: 153 / 91 mmHg Exam Date: 01/18/2025 10:45 AM Patient Status: O Admit Date: 01/18/2025 Exam Type: CA stress test treadmill A treadmill exercise stress test was performed. Staff Referring Physician: Chuck Tan DO Attending Provider: Chuck Tan DO Exercise Technologist: Hillary Shelby Exercise Physician: Chuck Tan DO Summary 1. 1. Negative Wei exercise stress test for ischemic ST changes by ECG criteria. 2. 2. Good functional capacity, achieving 11 METs of workload. 3. 3. Baseline hypertension with hypertensive response to exercise. 4. 4. Appropriate HR response to exercise. 5. 5. Appropriate HR recovery at 1 minute post exercise. 6. 6. No imaging with stress testing. 7. 7. Patient informed of the above results. Protocol: Wei Stress ECG Details Stage: REST Duration (min): 0 min : 49 sec Speed (mph): 0.0 Grade (%): 0 HR (bpm): 73 SBP (mmHg): 153 DBP (mmHg): 91 METS: --- Stage: REST Duration (min): 6 min : 19 sec Speed (mph): 0.0 Grade (%): 0 HR (bpm): 74 SBP (mmHg): 153 DBP (mmHg): 91 METS: --- Stage: STAGE 1 Duration (min): 1 min : 0 sec Speed (mph): 1.7 Grade (%): 10 HR (bpm): 96 SBP (mmHg): 153 DBP (mmHg): 91 METS: --- Stage: STAGE 1 Duration (min): 2 min : 0 sec Speed (mph): 1.7 Grade (%): 10 HR (bpm): 100 SBP (mmHg): 153 DBP (mmHg): 91 METS: --- Stage: STAGE 1 Duration (min): 3 min : 0 sec Speed (mph): 1.7 Grade (%): 10 HR (bpm): 103 SBP (mmHg): 176 DBP (mmHg): 105 METS: --- Stage: STAGE 2 Duration (min): 1 min : 0 sec Speed (mph): 2.5 Grade (%): 12 HR (bpm): 111 SBP (mmHg): 176 DBP (mmHg): 105 METS: --- Stage: STAGE 2 Duration (min): 2 min : 0 sec Speed (mph): 2.5 Grade (%): 12 HR (bpm): 118 SBP (mmHg): 176 DBP (mmHg): 105 METS: --- Stage: STAGE 2 Duration (min): 3 min : 0 sec Speed (mph): 2.5 Grade (%): 12 HR (bpm): 119 SBP (mmHg): 186 DBP (mmHg): 110 METS: --- Stage: STAGE 3 Duration (min): 1 min : 0 sec Speed (mph): 3.4 Grade (%): 14 HR (bpm): 134 SBP (mmHg): 211 DBP (mmHg): 99 METS: --- Stage: STAGE 3 Duration (min): 2 min : 0 sec Speed (mph): 3.4 Grade (%): 14 HR (bpm): 140 SBP (mmHg): 211 DBP (mmHg): 99 METS: --- Stage: STAGE 3 Duration (min): 3 min : 0 sec Speed (mph): 3.4 Grade (%): 14 HR (bpm): 146 SBP (mmHg): 191 DBP (mmHg): 111 METS: --- Stage: STAGE 4 Duration (min): 0 min : 33 sec Speed (mph): 4.2 Grade (%): 16 HR (bpm): 154 SBP (mmHg): 191 DBP (mmHg): 111 METS: --- Stage: RECOVERY Duration (min): 0 min : 26 sec Speed (mph): 0.0 Grade (%): 0 HR (bpm): 143 SBP (mmHg): 191 DBP (mmHg): 111 METS: --- Stage: RECOVERY Duration (min): 1 min : 26 sec Speed (mph): 0.0 Grade (%): 0 HR (bpm): 114 SBP (mmHg): 191 DBP (mmHg): 111 METS: --- Stage: RECOVERY Duration (min): 2 min : 26 sec Speed (mph): 0.0 Grade (%): 0 HR (bpm): 106 SBP (mmHg): 195 DBP (mmHg): 108 METS: --- Stage: RECOVERY Duration (min): 3 min : 26 sec Speed (mph): 0.0 Grade (%): 0 HR (bpm): 101 SBP (mmHg): 198 DBP (mmHg): 107 METS: --- Stage: RECOVERY Duration (min): 4 min : 26 sec Speed (mph): 0.0 Grade (%): 0 HR (bpm): 101 SBP (mmHg): 198 DBP (mmHg): 107 METS: --- Stage: RECOVERY Duration (min): 5 min : 26 sec Speed (mph): 0.0 Grade (%): 0 HR (bpm): 100 SBP (mmHg): 182 DBP (mmHg): 106 METS: --- Stage: RECOVERY Duration (min): 6 min : 17 sec Speed (mph): 0.0 Grade (%): 0 HR (bpm): 96 SBP (mmHg): 169 DBP (mmHg): 105 METS: --- Rest HR: 74 bpm Peak HR: 155 bpm Rest Sys BP: 153 mmHg Peak Sys BP: 211 mmHg Max Pred HR: 179 bpm % Max Pred HR: 87 % Target HR: 152 bpm Max RPP: 32,705 bpm*mmHg Zhang Score: -11 BP Response: Patient exhibited a hypertensive response with stress Termination Reason: Reached target heart rate or workload Cardiac Symptoms: Shortness of breath Max ST Seg Deviation: -4.20 mm Total Time: 9 min : 33 sec Rest Prescott BP: 91 mmHg Peak Prescott BP: 99 mmHg Angina Score: None Total METS: 11.2 Resting ECG Sinus rhythm. Stress ECG No ST changes. Arrhythmias None. Report Signatures
--- OUTSIDE RECORDS SUMMARY | 2025-01-18 11:28 | XMS_ITS | Clinical Summary ---
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 Encounters Date Type Department Care Team Description 11/10/2024 7:40 AM CDT - 11/10/2024 11:59 PM CDT Hospital Encounter [facility] [address] [place] [address] Syncope and collapse Discharge Disposition: Discharge to home or self care from Last 3 Months Surgical History Surgery Date Site/Laterality Comments ROTATOR [...] Comments Blood Pressure 141/73 05/21/2024 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 Pulse 66 05/21/2024 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 Temperature 36.9 C (98.4 F) 05/21/2024 11:12 AM 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 Respiratory Rate 20 05/21/2024 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 Oxygen Saturation 96% 05/21/2024 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 Inhaled Oxygen Concentration - - Weight 142.9 kg (315 lb) 05/28/2024 11:43 AM 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 Height 180.3 cm (5' 11) 05/28/2024 11:43 AM 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 Body Mass Index 43.93 05/28/2024 11:43 AM 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 Plan of Treatment Health Maintenance Due Date Last Done Comments Depression Screening 1985 Hepatitis C Screening 1985 DTaP/Tdap/Td Vaccine (1 - Tdap) 09/02/1994 Varicella Vaccines (1 of 2 - 13+ 2-dose series) 09/02/1996 Hepatitis B Screening 09/02/2001 Regular Well Visit/Exam 18-64 09/02/2001 HPV Vaccines (1 - 3-dose SCD M series) 09/02/2010 Influenza Vaccine (#1) 2024 03/05/2016 Pneumococcal vaccine <65 Aged Out No longer eligible based on patient's age to complete this topic Procedures Procedure Name Priority Date/Time Associated Diagnosis Comments TRANSTHORACIC ECHO (TTE) COMPLETE W DOPPLER/CF W CONTRAST Routine 11/10/2024 9:16 AM CDT Syncope and collapse from Last 3 Months Results * TRANSTHORACIC ECHO (TTE) COMPLETE W DOPPLER/CF W CONTRAST (11/10/2024 9:16 AM CDT) EF Mod BP 68 % CONS SCIMAGE Anatomical Region Laterality Modality Ultrasound 11/10/2024 8:10 AM CDT Narrative 11/11/2024 4:20 PM CDT Transthoracic Echocardiographic Report Patient Name: OBIE GUERRERO P : 1985 (39y 2m) Gender: M Study Date: 11/10/2024 08:10:23 AM Ht(Inch): 71 Wt(Lb): 314.99 BSA: 2.68 Postpartum Rn: Jayla Herron RDCS Order Provider: JAMES THIBODEAUX Heart Rate: 63 BMI: 43.93 BP: 141 / 73 Ref Provider: JAMES THIBODEAUX PROCEDURES: Echocardiographic Report: ([id number]) Transthoracic complete echo with contrast, 2D, spectral and tissue Doppler, color flow Doppler, M-mode. Additional Procedures: Agitated saline bubble study. Contrast: A contrast injection of Definity was performed to improve assessment of LV function. Definity Lot Number: [id number]. INDICATIONS: R55 Syncope and collapse. FINDINGS: Left Ventricle: Normal left ventricular cavity size. Normal Left ventricular wall thickness. Normal left ventricular systolic function. The Ejection Fraction (Kim's) is measured at 68 %. Diastolic Function Normal Left ventricular diastolic function. Right Ventricle: Normal right ventricular size. Normal right ventricular systolic function. Left Atrium: The left atrium is normal in size. Right Atrium: The right atrium is normal in size. Atrial Septum: No shunt by color Doppler. Mitral Valve: Normal mitral valve leaflet structure. No mitral regurgitation seen. No mitral valve stenosis. Aortic Valve: Trileaflet aortic valve. No aortic regurgitation seen. No aortic valve stenosis. The mean transaortic gradient is 6 mmHg. The aortic valve area by the continuity equation (using VTI) is 2.84 cm2. Tricuspid Valve: The tricuspid valve demonstrates normal leaflet structure. No tricuspid regurgitation seen. Normal estimated pulmonary artery systolic pressure. No tricuspid valve stenosis. Pulmonic Valve: No evidence of pulmonic regurgitation. Pericardium: No pericardial effusion noted. Aorta: Normal aortic root. The aortic Sinus is normal in size. IVC: IVC is normal in size. CONCLUSIONS: 1. Normal left ventricular cavity size. Normal Left ventricular wall thickness. Normal left ventricular systolic function. The Ejection Fraction (Kim's) is measured at 68 %. Diastolic Function Normal Left ventricular diastolic function. 2. Normal right ventricular size. Normal right ventricular systolic function. 3. IVC is normal in size. MEASUREMENTS: 2D/MM Value Range Doppler Value LVIDd 2D 4.93 cm [ 3.50 - 5.70 ] AV Peak Duane 1.54 m/s LVIDs 2D 3.50 cm [ 3.10 - 4.60 ] AV Peak PG 9.49 mmHg IVSd 2D 1.70 cm [ 0.60 - 1.20 ] AV Mean PG 6.00 mmHg LVPWd 2D 1.63 cm [ 0.60 - 1.10 ] AV VTI 33.80 cm LV Thickness Ratio 1.04 LVOT Peak Duane 1.23 m/s LV Mass 2D 373.62 g LVOT Peak PG 6.05 mmHg LV Mass Index 2D 139.41 g/m2 LVOT Mean PG 3.00 mmHg RWT 0.66 LVOT VTI 25.30 cm EDV Mod BP 157.00 ml [ 62.00 - 150.00 ] LVOT Diam 2.20 cm LV EDV Index 58.58 ml/m2 SV LVOT 96.00 cm3 ESV Mod BP 49.70 ml [ 21.00 - 61.00 ] DONATO VTI 2.84 cm2 EF Mod BP 68 % [ 52 - 72 ] DONATO Vmax 3.03 cm2 LA Dimension 2D 3.70 cm [ 1.90 - 4.00 ] LVOT/AV VTI 0.75 - Dimensionless index (DVI) LA Length 2C 5.20 cm MV E Peak Duane 0.95 m/s LA Length 4C 4.95 cm MV A Peak Duane 0.68 m/s LA Volume BP 54.00 ml MV E/A 1.40 ratio LA Volume Index 20.15 ml/m2 [ 16.00 - 34.00 ] MV Decel Time 209.00 msec RVDd 2D 3.71 cm [ 2.00 - 3.00 ] Med E` Duane 0.08 m/s TAPSE 2.33 cm [ 1.71 - 5.00 ] Lat E` Duane 0.14 m/s AoR Diam 2D 3.40 cm [ 2.00 - 3.70 ] Average E/E` 863.64 Ao Root Index 1.27 cm/m2 [ 1.00 - 2.00 ] RV S` 12.80 cm/sec TR Peak Duane 2.19 m/s TR Peak PG 19.2 mmHg PV Peak Duane 1.18 m/s PV Peak PG 5.57 mmHg - ATTESTATION: I have reviewed and interpreted the pertinent images and measurements of this study. I attest to the conclusions in the final report that is provided above. DISCLAIMER: The study images and the final report will be retained in the patient chart by the [facility] for the legally required time period. This chart constitutes the legal record of any testing performed. Electronically Signed By: Spencer Saleh MD 11/11/2024 4:20:36 PM CDT Procedure Note Spencer Saleh MD - 11/11/2024 Transthoracic Echocardiographic Report Patient Name: OBIE GUERRERO P : 1985 (39y 2m) Gender: M Study Date: 11/10/2024 08:10:23 AM Ht(Inch): 71 Wt(Lb): 314.99 BSA: 2.68 Postpartum Rn: Jayla Herron RDCS Order Provider: JAMES THIBODEAUX Heart Rate: 63 BMI: 43.93 BP: 141 / 73 Ref Provider: CARLOS EDUARDOJAMES PROCEDURES: Echocardiographic Report: ([id number]) Transthoracic complete echo withcontrast, 2D, spectral and tissue Doppler, color flow Doppler, M-mode. Additional Procedures: Agitated saline bubble study. Contrast: A contrast injection of Definity was performed to improveassessment of LV function. Definity Lot Number: [id number]. INDICATIONS: R55 Syncope and collapse. FINDINGS: Left Ventricle: Normal left ventricular cavity size. Normal Leftventricular wall thickness. Normal left ventricular systolic function. The EjectionFraction (Kim's) is measured at 68 %. Diastolic Function Normal Left ventricular diastolicfunction. Right Ventricle: Normal right ventricular size. Normal right ventricularsystolic function. Left Atrium: The left atrium is normal in size. Right Atrium: The right atrium is normal in size. Atrial Septum: No shunt by color Doppler. Mitral Valve: Normal mitral valve leaflet structure. No mitralregurgitation seen. No mitral valve stenosis. Aortic Valve: Trileaflet aortic valve. No aortic regurgitation seen. Noaortic valve stenosis. The mean transaortic gradient is 6 mmHg. The aortic valve areaby the continuity equation (using VTI) is 2.84 cm2. Tricuspid Valve: The tricuspid valve demonstrates normal leafletstructure. No tricuspid regurgitation seen. Normal estimated pulmonary artery systolic pressure.No tricuspid valve stenosis. Pulmonic Valve: No evidence of pulmonic regurgitation. Pericardium: No pericardial effusion noted. Aorta: Normal aortic root. The aortic Sinus is normal in size. IVC: IVC is normal in size. CONCLUSIONS: 1. Normal left ventricular cavity size. Normal Left ventricular wallthickness. Normal left ventricular systolic function. The Ejection Fraction (Kim's) ismeasured at 68 %. Diastolic Function Normal Left ventricular diastolic function. 2. Normal right ventricular size. Normal right ventricular systolicfunction. 3. IVC is normal in size. MEASUREMENTS: 2D/MM Value Range DopplerValue LVIDd 2D 4.93 cm [ 3.50 - 5.70 ] AV Peak Vel1.54 m/s LVIDs 2D 3.50 cm [ 3.10 - 4.60 ] AV Peak PG9.49 mmHg IVSd 2D 1.70 cm [ 0.60 - 1.20 ] AV Mean PG6.00 mmHg LVPWd 2D 1.63 cm [ 0.60 - 1.10 ] AV VTI33.80 cm LV Thickness Ratio 1.04 LVOT Peak Vel1.23 m/s LV Mass 2D 373.62 g LVOT Peak PG6.05 mmHg LV Mass Index 2D 139.41 g/m2 LVOT Mean PG3.00 mmHg RWT 0.66 LVOT VTI25.30 cm EDV Mod BP 157.00 ml [ 62.00 - 150.00 ] LVOT Diam2.20 cm LV EDV Index 58.58 ml/m2 SV LVOT96.00 cm3 ESV Mod BP 49.70 ml [ 21.00 - 61.00 ] DONATO VTI2.84 cm2 EF Mod BP 68 % [ 52 - 72 ] DONATO Vmax3.03 cm2 LA Dimension 2D 3.70 cm [ 1.90 - 4.00 ] LVOT/AV VTI0.75 - Dimensionless index (DVI) LA Length 2C 5.20 cm MV E Peak Vel0.95 m/s LA Length 4C 4.95 cm MV A Peak Vel0.68 m/s LA Volume BP 54.00 ml MV E/A1.40 ratio LA Volume Index 20.15 ml/m2 [ 16.00 - 34.00 ] MV Decel Sckf887.00 msec RVDd 2D 3.71 cm [ 2.00 - 3.00 ] Med E` Vel0.08 m/s TAPSE 2.33 cm [ 1.71 - 5.00 ] Lat E` Vel0.14 m/s AoR Diam 2D 3.40 cm [ 2.00 - 3.70 ] Average E/E`863.64 Ao Root Index 1.27 cm/m2 [ 1.00 - 2.00 ] RV S`12.80 cm/sec TR Peak Duane 2.19 m/s TR Peak PG 19.2 mmHg PV Peak Duane 1.18 m/s PV Peak PG 5.57 mmHg - ATTESTATION: I have reviewed and interpreted the pertinent images and measurements ofthis study. I attest to the conclusions in the final report that is provided above. DISCLAIMER: The study images and the final report will be retained in the patientchart by the [facility] for the legally required time period. This chart constitutesthe legal record of any testing performed. Electronically Signed By: Spencer Saleh MD 11/11/2024 4:20:36 PM CDT James Thibodeaux NP CV ECHO PROCEDURES Final Res ult from Last 3 Months Insurance [employer] ACCESS CHOICE WORKERS COMPENSATION GENERIC Care Teams It Trainee Relationship Specialty Start Date End Date Josiah Willard MD [address] [facility] [address] [place], [place] [id number] PCP - General Internal Medicine 03/10/18 Minerva Lambert MD [address] [facility], [facility] [address] [place] [address] Consulting Physician Pain Management 04/27/24
--- OUTSIDE RECORDS SUMMARY | 2025-01-18 11:28 | XMS_ITS | Clinical Summary ---
Author Organization [facility] Address [address] [place] [address] Care Team Providers Care Scallop Shucker Name Role Phone Unavailable Primary Care Provider Unavailabl e Source Comments [facility],non-owned Affiliates and Associated Physician Practices is amultiple site organization consisting of ambulatory clinics and hospital sitesin [place], [place], [place] and [place]. This disclosure is being madepursuant to the Care Everywhere program and may not contain all information available regarding this patient. 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 Gender Identity Not on file Sexual Orientation Not on file Last Filed Vital Signs Vital Sign Reading Time Taken Comments Blood Pressure 132/86 04/22/2017 5:17 PM HUMAN RESOURCES COMPLIANCE MANAGER Pulse 89 04/22/2017 5:17 PM HUMAN RESOURCES COMPLIANCE MANAGER Temperature 37.2 C (98.9 F) 04/22/2017 5:17 PM HUMAN RESOURCES COMPLIANCE MANAGER Respiratory Rate 16 04/22/2017 5:17 PM HUMAN RESOURCES COMPLIANCE MANAGER Oxygen Saturation 97% 04/22/2017 5:17 PM HUMAN RESOURCES COMPLIANCE MANAGER Inhaled Oxygen Concentration - - Weight 142.9 kg (315 lb) 04/22/2017 5:17 PM HUMAN RESOURCES COMPLIANCE MANAGER Height 180.3 cm (5' 11) 04/22/2017 5:17 PM HUMAN RESOURCES COMPLIANCE MANAGER Body Mass Index 43.93 04/22/2017 5:17 PM HUMAN RESOURCES COMPLIANCE MANAGER Plan of Treatment Health Maintenance Due Date Last Done Comments LIPID TESTING 1985 HIV SCREENING 09/02/1998 HEPATITIS C SCREENING 08/29/2001 DTAP/TDAP/TD VACCINES (1 - Tdap) 09/02/2002 HEPATITIS B VACCINE (1 of 3 - 19+ 3-dose series) 09/02/2002 HPV VACCINE (1 - 3-dose SCDM series) 09/02/2010 DEPRESSION SCREENING 04/28/2024 COVID-19 VACCINE (1 - 2023-2 5 season) 2024 INFLUENZA VACCINE (#1) 2024 ZOSTER VACCINE (1 of 2) 09/02/2033 [...] patient's age to complete this topic [facility]
== END 2025-01-18 10:44 | disposition home or self-care (01) ==
LOC: ANHCARD 10:44
PROVIDERS: PCP Nurse Practitioner; Visit Provider Internal Medicine Cardiovascular Disease
DX: R07.9 Chest pain, unspecified (principal)
CPT/HCPCS: 93017